=== PATIENT | female | born 1970 | race Caucasian/White ===

== ENCOUNTER 2018-09-13 11:14 | Emergency (ER) | payer MEDICARE ==
[2018-09-13 12:13] LABS: BILIRUBIN,URINE NEGATIVE (NEGATIVE); COLOR,URINE YELLOW (YELLOW); GLUCOSE, URINE (UA) NEGATIVE (NEGATIVE); KETONES,URINE NEGATIVE (NEGATIVE); LEUKOCYTE ESTERASE ,URINE TRACE (NEGATIVE); NITRATE,URINE NEGATIVE (NEGATIVE); OCCULT BLOOD,URINE NEGATIVE (NEGATIVE); PROTEIN,URINE NEGATIVE (NEGATIVE); UROBILINOGEN,URINE 0.2 mg/dL (0.2-1.0)
[2018-09-13 12:14] LABS: BASOPHILS % (AUTO) 0.9 % (0.0-5.0); EOSINOPHILS % (AUTO) 1.1 % (0.0-8.0); HEMATOCRIT 32.9 % (36-48); LYMPHOCYTES % (AUTO) 24.6 % (21.0-51.0); MEAN CORPUSCULAR HEMOGLOBIN 25.6 pg (27.0-33.0); MEAN CORPUSCULAR HGB CONC 32.7 g/dL (32.0-36.0); MEAN CORPUSCULAR VOLUME 78.3 fL (79-99); MONOCYTES % (AUTO) 4.3 % (3.0-13.0); NEUTROPHILS % (AUTO) 69.1 % (40.0-77.0); PLATELET COUNT (AUTO) 371 K/uL (130-400); RED CELL DISTRIBUTION WIDTH 16.1 % (11.0-15.5); WHITE BLOOD COUNT (AUTO) 7.8 K/uL (4.8-10.8)
[2018-09-13 12:26] LABS: CREATININE 0.8 mg/dL (0.5-1.5); POTASSIUM 3.7 mmol/L (3.5-5.1)
[2018-09-13 12:30] LABS: ALBUMIN 3.2 g/dL (3.5-5.0); BILIRUBIN,TOTAL 0.3 mg/dL (0.2-1.0); TOTAL PROTEIN, SERUM 7.3 g/dL (6.0-8.3)
[2018-09-13 12:34] LABS: INR 0.91 (0.85-1.15); PARTIAL THROMBOPLASTIN TIME 25.2 SEC (26.3-35.5); PROTHROMBIN TIME 9.6 SEC (9.6-11.6)
[2018-09-13] MEDS ORDERED: ASPIRIN 325 MG TABLET ONE (12:55)
[2018-09-13 12:59] LABS: APPEARANCE,URINE CLOUDY (CLEAR); BACTERIA,URINE Moderate /HPF (None Seen); RBC,URINE None Seen /HPF (0-1); SQUAMOUS EPITHELIAL CELL,UR 30-50 /HPF (0-2); WBC,URINE 0-1 /HPF (0-1)
== END 2018-09-13 17:58 | disposition home or self-care (01) ==
LOC: EDH 11:14 → UNDOADMIN 13:20 → EDHIP 13:20 → EDH 17:58
DX: M62.81 Muscle weakness (generalized) (principal); R29.810 Facial weakness; R25.1 Tremor, unspecified; T43.015A Adverse effect of tricyclic antidepressants, initial encounter; Z88.6 Allergy status to analgesic agent; Z88.8 Allergy status to other drugs, medicaments and biological substances; Y92.89 Other specified places as the place of occurrence of the external cause
CPT/HCPCS: 36415; 70450; 70551; 80053; 81001; 82550; 82948; 84484; 85025; 85610; 85730; 93005

== ENCOUNTER → 2019-08-09 | Outpatient (CLI) | payer MEDICARE | END | disposition home or self-care (01) | LOC: RAH 15:36 | PROVIDERS: ATTEND Orthopaedic Surgery | DX: M75.42 Impingement syndrome of left shoulder (principal) | CPT/HCPCS: 73221 ==

== ENCOUNTER → 2020-06-22 | Outpatient (CLI) | payer OTHER, MEDICARE ==
[2020-06-22 08:25] LABS: PROTHROMBIN TIME 10.9 SEC (9.6-11.6)
[2020-06-22 08:26] LABS: PARTIAL THROMBOPLASTIN TIME 25.1 SEC (26.3-35.5)
== END | disposition home or self-care (01) ==
LOC: RAH 07:44
PROVIDERS: ATTEND Otolaryngology Plastic Surgery within the Head & Neck
DX: R59.9 Enlarged lymph nodes, unspecified (principal)
CPT/HCPCS: 36415; 76536; 85610; 85730

== ENCOUNTER 2020-09-10 05:43 | Day surgery (SDC) | payer OTHER, MEDICARE ==
[2020-09-06 09:09] LABS: BASOPHILS % (AUTO) 0.9 % (0.0-5.0); EOSINOPHILS % (AUTO) 1.7 % (0.0-8.0); HEMATOCRIT 35.3 % (36-48); MEAN CORPUSCULAR VOLUME 93.6 fL (79-99); MONOCYTES % (AUTO) 7.1 % (3.0-13.0); NEUTROPHILS % (AUTO) 55.9 % (40.0-77.0); PLATELET COUNT (AUTO) 326 K/uL (130-400); RED BLOOD CELL COUNT(AUTO) 3.77 MIL/uL (4.00-5.50); RED CELL DISTRIBUTION WIDTH 13.4 % (11.0-15.5); WHITE BLOOD COUNT (AUTO) 4.7 K/uL (4.8-10.8)
[2020-09-06 09:18] LABS: POTASSIUM 3.4 mmol/L (3.5-5.1)
[2020-09-06 09:22] LABS: CREATININE 0.7 mg/dL (0.5-1.5)
[2020-09-07 11:44] VITALS: BP 118/64
[2020-09-10] VITALS (16 sets, daily range): BP systolic 99–125; BP diastolic 53–86
[~2020-09-10] VITALS: Ht 162.6 cm; Wt 82.4 kg
[~2020-09-10 05:43] MED LIST: AMLO2.5T4 PO; CETI10TA57 PO; ESTR1TAB17 PO; FLUC100T8 PO; FLUO40CA7 PO; IRON PO; LORA0.5T83 PO; LYSI500T45 PO; MIRA25TA PO; PANT40TA54 PO; PREG75CA75 PO; QUET400T12 PO; RAME8TAB24 PO; TIZA4CAP8 PO; TRAM50TA4 PO
[2020-09-10] MEDS: CEFAZOLIN SODIUM 1 GM VIAL IVP SCH ×2 (06:00→08:20)
[2020-09-10] MEDS ORDERED: SUCCINYLCHOLINE CHLORIDE 20 MG/ML 10 ML VIAL ONE (07:05)
[2020-09-10] MEDS ORDERED: LIDOCAINE PF 2% 5ML ABBOJECT ONE (07:05)
[2020-09-10] MEDS ORDERED: ONDANSETRON HCL 4 MG/2 ML VIAL ONE (07:06)
[2020-09-10] MEDS ORDERED: DEXAMETHASONE SOD PHOSPHATE 10MG/ML 1ML VIAL ONE (07:06)
[2020-09-10] MEDS ORDERED: MIDAZOLAM HCL 1 MG/ML 2ML VIAL ONE (07:06)
[2020-09-10] MEDS ORDERED: PROPOFOL 10 MG/ML 20ML VIAL IV ONE (07:06)
[2020-09-10] MEDS ORDERED: NEOSTIGMINE 5MG/5ML SYR IV ONE (07:06)
[2020-09-10] MEDS ORDERED: GLYCOPYRROLATE 1 MG/5 ML SYRINGE ONE (07:06)
[2020-09-10] MEDS ORDERED: FENTANYL CITRATE PF 50 MCG/1 ML 2ML VIAL ONE ×2 (07:07→08:49)
[2020-09-10] MEDS ORDERED: ROCURONIUM 10MG/1ML SYR 10 MG/ML ML ONE (07:07)
[2020-09-10] MEDS ORDERED: ROPIVACAINE 0.5% 5MG/ML 30ML IJ ONE (07:11)
[2020-09-10] MEDS ORDERED: LACTATED RINGERS 1000ML 1,000 ML IV ONE (07:21)
[2020-09-10] MEDS ORDERED: EPHEDRINE SULFATE 50 MG/ML AMPULE ONE (08:42)
[2020-09-10] MEDS ORDERED: MEPERIDINE-PF 25 MG/ML SYG ONE ×2 (09:38→09:47)
[2020-09-10] MEDS ORDERED: CEPH500B PO (09:45)
== END 2020-09-10 10:45 | disposition home or self-care (01) ==
LOC: DAH 05:43
PROVIDERS: ATTEND Orthopaedic Surgery
DX: M23.322 Other meniscus derangements, posterior horn of medial meniscus, left knee (principal); Z20.822 Contact with and (suspected) exposure to COVID-19; M17.11 Unilateral primary osteoarthritis, right knee; I10 Essential (primary) hypertension; M19.90 Unspecified osteoarthritis, unspecified site; M79.7 Fibromyalgia; F41.0 Panic disorder [episodic paroxysmal anxiety]; M25.562 Pain in left knee; G89.29 Other chronic pain; F32.9 Major depressive disorder, single episode, unspecified; Z98.84 Bariatric surgery status; Z90.49 Acquired absence of other specified parts of digestive tract; Z90.710 Acquired absence of both cervix and uterus; Z98.890 Other specified postprocedural states; Z88.8 Allergy status to other drugs, medicaments and biological substances
CPT/HCPCS: 29881; 36415; 80048; 85025; A4215; A4221; A4222; A4223; A4606; A4649 ×2; A4657; A4663; A4930 ×2; A5120; A6223; C9803; J0330; J0690; J1100; J2001; J2175 ×2; J2250; J2405; J2704; J2710; J2795; J3010 ×2; J3490 ×2; J7030; J7120 ×2; U0003

== ENCOUNTER 2021-01-31 07:47 | Day surgery (SDC) | payer MEDICARE, OTHER ==
[2021-01-29 12:06] LABS: BASOPHILS % (AUTO) 0.8 % (0.0-5.0); EOSINOPHILS % (AUTO) 2.2 % (0.0-8.0); HEMATOCRIT 36.1 % (36-48); LYMPHOCYTES % (AUTO) 16.3 % (21.0-51.0); MEAN CORPUSCULAR HEMOGLOBIN 30.4 pg (27.0-33.0); MEAN CORPUSCULAR HGB CONC 32.1 g/dL (32.0-36.0); MEAN CORPUSCULAR VOLUME 94.8 fL (79-99); MONOCYTES % (AUTO) 3.9 % (3.0-13.0); NEUTROPHILS % (AUTO) 76.7 % (40.0-77.0); PLATELET COUNT (AUTO) 337 K/uL (130-400); RED BLOOD CELL COUNT(AUTO) 3.81 MIL/uL (4.00-5.50); RED CELL DISTRIBUTION WIDTH 13.7 % (11.0-15.5); WHITE BLOOD COUNT (AUTO) 7.4 K/uL (4.8-10.8)
[2021-01-29 12:20] LABS: CREATININE 0.7 mg/dL (0.5-1.5); POTASSIUM 4.2 mmol/L (3.5-5.1)
[2021-01-30 13:11] VITALS: BP 109/70
[~2021-01-31] VITALS: Ht 162.6 cm; Wt 81.6 kg
[2021-01-31] VITALS (16 sets, daily range): BP systolic 98–119; BP diastolic 58–79
[~2021-01-31 07:47] MED LIST changes: -QUET400T12 PO; +QUET400T13 PO; +VITAMIN D3 PO
[2021-01-31] MEDS ORDERED: LACTATED RINGERS 1000ML 1,000 ML IV ONE (08:30)
[2021-01-31] MEDS: CEFAZOLIN SODIUM 1 GM VIAL IVP ONE ×2 (09:03→11:00)
[2021-01-31] MEDS ORDERED: LIDOCAINE PF 100MG/5ML (2%) SYRINGE 5ML ONE (10:03)
[2021-01-31] MEDS ORDERED: PROPOFOL 10 MG/ML 20ML VIAL IV ONE (10:03)
[2021-01-31] MEDS ORDERED: MIDAZOLAM HCL 1 MG/ML 2ML VIAL ONE (10:04)
[2021-01-31] MEDS ORDERED: FENTANYL CITRATE PF 50 MCG/1 ML 2ML VIAL ONE (10:04)
[2021-01-31] MEDS ORDERED: ROPIVACAINE 0.5% 5MG/ML 30ML IJ ONE (10:07)
[2021-01-31] MEDS ORDERED: GLYCOPYRROLATE 1 MG/5 ML SYRINGE ONE (10:47)
[2021-01-31] MEDS ORDERED: EPHEDRINE SULFATE 50 MG/ML AMPULE ONE (10:49)
[2021-01-31] MEDS ORDERED: CEFAZOLIN SODIUM 1 GM VIAL ONE (11:06)
[2021-01-31] MEDS ORDERED: 0.9%NACL 10ML VIAL ONE (11:08)
[2021-01-31] MEDS ORDERED: ONDANSETRON 4MG INJ ONE (12:53)
[2021-01-31] MEDS ORDERED: KETOROLAC 30MG VIAL (30MG/ML) ONE (12:53)
[2021-01-31] MEDS ORDERED: CEPH500B PO (13:13)
== END 2021-01-31 15:09 | disposition home or self-care (01) ==
LOC: DAH 07:47
PROVIDERS: ATTEND Orthopaedic Surgery
DX: S82.65XA Nondisplaced fracture of lateral malleolus of left fibula, initial encounter for closed fracture (principal); Z20.822 Contact with and (suspected) exposure to COVID-19; S92.342A Displaced fracture of fourth metatarsal bone, left foot, initial encounter for closed fracture; S92.352A Displaced fracture of fifth metatarsal bone, left foot, initial encounter for closed fracture; I10 Essential (primary) hypertension; F17.200 Nicotine dependence, unspecified, uncomplicated; K21.9 Gastro-esophageal reflux disease without esophagitis; M79.7 Fibromyalgia; E11.9 Type 2 diabetes mellitus without complications; M19.90 Unspecified osteoarthritis, unspecified site; F41.0 Panic disorder [episodic paroxysmal anxiety]; E66.9 Obesity, unspecified; F32.9 Major depressive disorder, single episode, unspecified; Z90.49 Acquired absence of other specified parts of digestive tract; Z90.710 Acquired absence of both cervix and uterus; Z98.890 Other specified postprocedural states; Z79.899 Other long term (current) drug therapy; Z98.84 Bariatric surgery status; Z88.8 Allergy status to other drugs, medicaments and biological substances
CPT/HCPCS: 36415; 73630; 76942; 80048; 85025; 87635; C9803; J0690; J1885; J2001; J2250; J2405; J2704; J2795; J3010; J3490; J7030; J7120